=== PATIENT | female | born 1985 | race African-American/Black ===

== ENCOUNTER 2019-01-09 20:10 | Emergency (ER) | payer OTHER ==
[~2019-01-09] VITALS: Ht 170.2 cm; Wt 209.1 kg
[2019-01-09] MEDS ORDERED: NAPR-58 PO (20:32)
[2019-01-09] MEDS ORDERED: AMOX1TAB16 PO (20:32)
[2019-01-09] MEDS ORDERED: BACI30OI10 TP (20:32)
[2019-01-09] MEDS ORDERED: BACITRACIN 0.9 GM PACKET OINTMENT TP ONE (21:45)
[2019-01-09 22:38] VITALS: BP 119/85
== END 2019-01-09 22:55 | disposition home or self-care (01) ==
LOC: EMS 20:10
DX: S60.512A Abrasion of left hand, initial encounter (principal); S50.812A Abrasion of left forearm, initial encounter; J45.909 Unspecified asthma, uncomplicated; I10 Essential (primary) hypertension; Z48.02 Encounter for removal of sutures; Z91.018 Allergy to other foods; V49.9XXA Car occupant (driver) (passenger) injured in unspecified traffic accident, initial encounter; Y93.89 Activity, other specified; Y92.89 Other specified places as the place of occurrence of the external cause; Y99.8 Other external cause status

== ENCOUNTER 2019-01-14 12:35 | Emergency (ER) | payer OTHER ==
[~2019-01-14] VITALS: Ht 170.2 cm; Wt 180.9 kg
[~2019-01-14 12:35] MED LIST: AMOX1TAB16 PO; BACI30OI10 TP; NAPR-58 PO
[2019-01-14] MEDS ORDERED: LISI-662 PO (12:44)
[2019-01-14] MEDS ORDERED: MOME13HF2 IH (12:44)
[2019-01-14] MEDS ORDERED: FERR-89 PO (12:44)
[2019-01-14] MEDS ORDERED: TOLT2TAB2 PO (12:44)
[2019-01-14] MEDS ORDERED: HYDR25TA PO (12:44)
[2019-01-14] MEDS ORDERED: MONT10TA21 PO (12:44)
[2019-01-14] MEDS ORDERED: CALC-134 PO (12:44)
[2019-01-14] MEDS ORDERED: ALBU8HFA IH (12:44)
[2019-01-14] MEDS ORDERED: BACI28.3 TP (12:44)
[2019-01-14] MEDS ORDERED: HydrOXYzine PAMOATE 50 MG CAPSULE PO ONE (13:45)
[2019-01-14] MEDS ORDERED: SODIUM CHLORIDE 0.9% 1,000 ML IV ONE (15:15)
[2019-01-14] MEDS ORDERED: ALBUTEROL SULFATE HFA 90 MCG/PUFF 8 GM INHALER IH ONE (15:30)
[2019-01-14 16:29] LABS: BASOPHILS % (AUTO) 0.8 % (0.0-2.0); EOSINOPHILS % (AUTO) 4.2 % (1.0-6.0); HEMATOCRIT 27.3 % (36-46); HEMOGLOBIN 8.4 g/dL (12.0-16.0); LYMPHOCYTES # (AUTO) 3.4 K/uL (1.0-4.8); LYMPHOCYTES % (AUTO) 30.1 % (22.0-44.0); MEAN CORPUSCULAR HEMOGLOBIN 18.7 pg (26.0-34.0); MEAN CORPUSCULAR HGB CONC 30.9 G/dL (31.0-37.0); MEAN CORPUSCULAR VOLUME 61 fL (80-100); MONOCYTES # (AUTO) 0.7 K/uL (0.1-1.0); MONOCYTES % (AUTO) 5.9 % (2.0-9.0); NEUTROPHILS # (AUTO) 6.6 K/uL (1.8-7.7); PLATELET COUNT (AUTO) 332 K/uL (150-450); RED CELL DISTRIBUTION WIDTH 19.6 % (11.5-14.5)
[2019-01-14 16:42] LABS: ANION GAP 8 mmol/L (8-16); CALCIUM, TOTAL 9.4 mg/dL (8.8-10.5); CARBON DIOXIDE 28 mmol/L (22-29); CHLORIDE 105 mmol/L (98-107); CREATININE 1.01 mg/dL (0.60-1.30); GLOMERULAR FILTR. RATE CALC > 60 mL/min (>60); GLUCOSE,RANDOM 94 mg/dL (70-110); POTASSIUM 3.4 mmol/L (3.5-5.1); SODIUM SERUM 141 mmol/L (136-145); UREA NITROGEN, BLOOD 20 mg/dL (7-18)
[2019-01-14 17:04] LABS: AMPHET/METH SCREEN,URINE POSITIVE (NEGATIVE); BARBITURATE SCREEN, URINE NEGATIVE (NEGATIVE); BENZODIAZEPINES SCREEN,URINE NEGATIVE (NEGATIVE); CANNABINOID SCREEN,URINE NEGATIVE (NEGATIVE); COCAINE SCREEN,URINE NEGATIVE (NEGATIVE); METHADONE SCREEN, URINE NEGATIVE (NEGATIVE); OPIATE SCREEN,URINE NEGATIVE (NEGATIVE)
[2019-01-14 17:06] LABS: PHENCYCLIDINE SCREEN,URINE NEGATIVE (NEGATIVE)
[2019-01-14 18:23] VITALS: BP 145/81
== END 2019-01-14 18:46 | disposition home or self-care (01) ==
LOC: EMS 12:38
DX: S40.812A Abrasion of left upper arm, initial encounter (principal); R00.0 Tachycardia, unspecified; E66.01 Morbid (severe) obesity due to excess calories; T43.625A Adverse effect of amphetamines, initial encounter; F41.9 Anxiety disorder, unspecified; J45.909 Unspecified asthma, uncomplicated; I10 Essential (primary) hypertension; Z68.44 Body mass index [BMI] 60.0-69.9, adult; Z48.00 Encounter for change or removal of nonsurgical wound dressing; Z79.899 Other long term (current) drug therapy; Z91.018 Allergy to other foods; V49.88XA Car occupant (driver) (passenger) injured in other specified transport accidents, initial encounter; Y93.89 Activity, other specified; Y99.8 Other external cause status; Y92.89 Other specified places as the place of occurrence of the external cause
CPT/HCPCS: 36415; 80048; 80307; 85025; 93005; 99284; J7030; J3535

== ENCOUNTER 2019-08-30 13:12 | Emergency (ER) | payer OTHER ==
[~2019-08-30] VITALS: Ht 170.2 cm; Wt 175.0 kg
[~2019-08-30 13:12] MED LIST changes: +ALBU8HFA IH; +BACI28.3 TP; +CALC-134 PO; +FERR-89 PO; +HYDR25TA PO; +LISI-662 PO; +MOME13HF2 IH; +MONT10TA21 PO; +NAPR-1025 PO; -NAPR-58 PO; +TOLT2TAB2 PO
[2019-08-30 16:00] VITALS: BP 131/81
== END 2019-08-30 16:52 | disposition home or self-care (01) ==
LOC: EMS 13:13
DX: L97.921 Non-pressure chronic ulcer of unspecified part of left lower leg limited to breakdown of skin (principal); J45.909 Unspecified asthma, uncomplicated; I10 Essential (primary) hypertension; Z91.018 Allergy to other foods; Z79.899 Other long term (current) drug therapy

== ENCOUNTER → 2019-09-20 | Outpatient (CLI) | payer OTHER ==
[~2019-09-20] MED LIST changes: -AMOX1TAB16 PO; -BACI28.3 TP; -BACI30OI10 TP; +LIDOCAINE 4% 50 ML SOLUTION TP ONE; -NAPR-1025 PO
== END | disposition home or self-care (01) ==
LOC: HBOWC 11:14
PROVIDERS: ATTEND Podiatrist
DX: L97.222 Non-pressure chronic ulcer of left calf with fat layer exposed (principal); I87.2 Venous insufficiency (chronic) (peripheral); E66.01 Morbid (severe) obesity due to excess calories; L84 Corns and callosities; J45.909 Unspecified asthma, uncomplicated; I89.0 Lymphedema, not elsewhere classified; I10 Essential (primary) hypertension; G47.33 Obstructive sleep apnea (adult) (pediatric); Z79.899 Other long term (current) drug therapy; Z91.018 Allergy to other foods; Z68.44 Body mass index [BMI] 60.0-69.9, adult
CPT/HCPCS: 11042; 11045

== ENCOUNTER 2019-09-25 10:35 | Inpatient (IN) | payer OTHER ==
[~2019-09-25] VITALS: Ht 167.6 cm; Wt 165.6 kg
[~2019-09-25 10:35] MED LIST changes: -LIDOCAINE 4% 50 ML SOLUTION TP ONE
[2019-09-25] MEDS ORDERED: 0.9% SODIUM CHLORIDE 10 ML SYRINGE IVP PRN (11:00)
[2019-09-25 11:51] LABS: BASOPHILS % (AUTO) 0.6 % (0.0-2.0); EOSINOPHILS % (AUTO) 0.1 % (1.0-6.0); HEMATOCRIT 27.7 % (36-46); HEMOGLOBIN 8.5 g/dL (12.0-16.0); LYMPHOCYTES # (AUTO) 1.3 K/uL (1.0-4.8); LYMPHOCYTES % (AUTO) 6.6 % (22.0-44.0); MEAN CORPUSCULAR HEMOGLOBIN 19.2 pg (26.0-34.0); MEAN CORPUSCULAR HGB CONC 30.7 G/dL (31.0-37.0); MEAN CORPUSCULAR VOLUME 63 fL (80-100); MONOCYTES % (AUTO) 5.3 % (2.0-9.0); NEUTROPHILS # (AUTO) 16.6 K/uL (1.8-7.7); PLATELET COUNT (AUTO) 407 K/uL (150-450); RED BLOOD CELL COUNT(AUTO) 4.43 MIL/uL (4.00-5.20)
[2019-09-25] MEDS ORDERED: SODIUM CHLORIDE 0.9% 3,000 ML IV ONE (11:51)
[2019-09-25 11:55] LABS: NEUTROPHILS % (AUTO) 87.4 % (40.0-70.0)
[2019-09-25] MEDS ORDERED: ACETAMINOPHEN 500 MG TABLET PO ONE (12:00)
[2019-09-25] MEDS ORDERED: IBUPROFEN 800 MG TABLET PO ONE (12:00)
[2019-09-25 12:10] LABS: ANION GAP 9 mmol/L (8-16); CARBON DIOXIDE 25 mmol/L (22-29); CHLORIDE 104 mmol/L (98-107); CREATININE 1.09 mg/dL (0.60-1.30); GLOMERULAR FILTR. RATE CALC > 60 mL/min (>60); GLUCOSE,RANDOM 106 mg/dL (70-110); POTASSIUM 3.9 mmol/L (3.5-5.1); SODIUM SERUM 138 mmol/L (136-145); UREA NITROGEN, BLOOD 7 mg/dL (7-18)
[2019-09-25 12:14] LABS: INR 1.3 (0.9-1.1); LACTIC ACID 1.2 mmol/L (0.4-2.0)
[2019-09-25 12:15] LABS: B-TYPE NATRIURETIC PEPTIDE 542 pg/mL (0-100)
[2019-09-25 12:41] LABS: ALANINE AMINOTRANSFERASE 29 U/L (12-78); ALBUMIN 2.7 g/dL (3.4-5.0); ALKALINE PHOSPHATASE 101 U/L (46-116); ASPARTATE AMINOTRANSFERASE 23 U/L (15-37); BILIRUBIN,TOTAL 0.7 mg/dL (0.1-1.0); C-REACTIVE PROTEIN QUANT 7.35 mg/dL (0.00-0.30); CREATINE KINASE, TOTAL ONLY 240 U/L (26-192); HCG,QUANTITATIVE < 1 mIU/mL (0-6); TOTAL PROTEIN, SERUM 8.4 g/dL (6.4-8.2)
[2019-09-25 12:51] LABS: PLATELET MORPHOLOGY COMMENT GIANT PLTS PRESENT
[2019-09-25 12:57] LABS: D-DIMER 1.16 mg/L FEU (0.00-0.50)
[2019-09-25] MEDS ORDERED: MORPHINE SULFATE 2 MG/ML SYRINGE IVP PRN (13:00)
[2019-09-25] MEDS ORDERED: ACETAMINOPHEN 325 MG TABLET PO PRN (13:00)
[2019-09-25] MEDS ORDERED: BISACODYL 10 MG RECTAL RECTAL SUPPOSITORY PR PRN (13:00)
[2019-09-25] MEDS ORDERED: OxyCODONE HCL/ACETAMINOPHEN 5-325 MG TABLET PO PRN (13:00)
[2019-09-25] MEDS ORDERED: SODIUM CHLORIDE 0.9% 1,000 ML IV ONE (13:15)
[2019-09-25] MEDS ORDERED: PIPERACILLIN/TAZO 3.375 GM/D5W 50 ML IV ONE (13:15)
[2019-09-25] MEDS ORDERED: VANCOMYCIN HCL 1 GM/D5% WATER 200 ML IV ONE (13:15)
[2019-09-25 15:45] VITALS: BP 125/62
[2019-09-25] MEDS ORDERED: SODIUM CHLORIDE 0.9% 250 ML IV ONE (15:47)
[2019-09-25] MEDS: HEPARIN SODIUM,PORCINE 5,000 UNITS/ML VIAL SQ SCH ×2 (16:00→23:26)
[2019-09-25] MEDS: PIPERACILLIN/TAZO 3.375 GM/D5W 50 ML IV SCH ×2 (16:11→20:30)
[2019-09-25] MEDS ORDERED: VANCOMYCIN HCL 1.5 GM in DEXTROSE 5%-WATER 250 ML IV ONE (18:00)
[2019-09-25 19:55] VITALS: BP 131/74
[2019-09-25] MEDS: DOCUSATE SODIUM 100 MG CAPSULE PO SCH (20:29)
[2019-09-25] MEDS: VANCOMYCIN HCL 1.5 GM in DEXTROSE 5%-WATER 250 ML IV SCH (23:26)
[2019-09-26] VITALS (8 sets, daily range): BP systolic 103–142; BP diastolic 51–79
[2019-09-26] MEDS: PIPERACILLIN/TAZO 3.375 GM/D5W 50 ML IV SCH ×4 (05:04→21:33)
[2019-09-26 06:53] LABS: ANION GAP 9 mmol/L (8-16); CALCIUM, TOTAL 8.2 mg/dL (8.8-10.5); CARBON DIOXIDE 26 mmol/L (22-29); CHLORIDE 105 mmol/L (98-107); CREATININE 1.18 mg/dL (0.60-1.30); GLOMERULAR FILTR. RATE CALC > 60 mL/min (>60); GLUCOSE,RANDOM 89 mg/dL (70-110); POTASSIUM 3.6 mmol/L (3.5-5.1); SODIUM SERUM 140 mmol/L (136-145); UREA NITROGEN, BLOOD 10 mg/dL (7-18)
[2019-09-26] MEDS ORDERED: SODIUM CHLORIDE 0.9% 500 ML IV ONE (07:58)
[2019-09-26] MEDS: HEPARIN SODIUM,PORCINE 5,000 UNITS/ML VIAL SQ SCH ×3 (08:00→23:28)
[2019-09-26] MEDS: DOCUSATE SODIUM 100 MG CAPSULE PO SCH ×2 (08:04→21:00)
[2019-09-26] MEDS: VANCOMYCIN HCL 1.5 GM in DEXTROSE 5%-WATER 250 ML IV SCH ×3 (08:04→23:27)
[2019-09-26] MEDS: FAMOTIDINE 20 MG TABLET PO SCH (08:04)
[2019-09-26] MEDS: MULTIVITAMINS WITH MINERALS, THERAPEUTIC TABLET PO SCH (08:04)
[2019-09-26] MEDS: ASPIRIN 81 MG CHEWABLE TABLET PO SCH (08:05)
[2019-09-27] MEDS ORDERED: 0.9% SODIUM CHLORIDE 5 ML NEB SOLUTION NEB ONE (01:21)
[2019-09-27] MEDS: ALBUTEROL SULFATE 2.5 MG/0.5 ML NEB SOLUTION NEB PRN (04:22)
[2019-09-27] MEDS: PIPERACILLIN/TAZO 3.375 GM/D5W 50 ML IV SCH ×4 (04:48→22:50)
[2019-09-27 05:33] VITALS: BP 150/76
[2019-09-27 07:11] LABS: BASOPHILS % (AUTO) 0.6 % (0.0-2.0); EOSINOPHILS % (AUTO) 1.9 % (1.0-6.0); HEMATOCRIT 26.6 % (36-46); HEMOGLOBIN 8.2 g/dL (12.0-16.0); LYMPHOCYTES # (AUTO) 2.3 K/uL (1.0-4.8); LYMPHOCYTES % (AUTO) 25.9 % (22.0-44.0); MEAN CORPUSCULAR HEMOGLOBIN 19.4 pg (26.0-34.0); MEAN CORPUSCULAR HGB CONC 30.8 G/dL (31.0-37.0); MEAN CORPUSCULAR VOLUME 63 fL (80-100); MONOCYTES # (AUTO) 1.2 K/uL (0.1-1.0); MONOCYTES % (AUTO) 13.7 % (2.0-9.0); NEUTROPHILS # (AUTO) 5.1 K/uL (1.8-7.7); NEUTROPHILS % (AUTO) 57.9 % (40.0-70.0); PLATELET COUNT (AUTO) 340 K/uL (150-450); RED BLOOD CELL COUNT(AUTO) 4.23 MIL/uL (4.00-5.20); RED CELL DISTRIBUTION WIDTH 23.3 % (11.5-14.5)
[2019-09-27 07:28] VITALS: BP 130/83
[2019-09-27 07:36] LABS: ANION GAP 8 mmol/L (8-16); CALCIUM, TOTAL 8.3 mg/dL (8.8-10.5); CARBON DIOXIDE 26 mmol/L (22-29); CHLORIDE 106 mmol/L (98-107); CREATININE 1.12 mg/dL (0.60-1.30); GLOMERULAR FILTR. RATE CALC > 60 mL/min (>60); GLUCOSE,RANDOM 97 mg/dL (70-110); POTASSIUM 3.7 mmol/L (3.5-5.1); SODIUM SERUM 140 mmol/L (136-145); UREA NITROGEN, BLOOD 8 mg/dL (7-18); VANCOMYCIN,RANDOM 27.4 mcg/mL (25.0-50.0)
[2019-09-27] MEDS: DOCUSATE SODIUM 100 MG CAPSULE PO SCH ×2 (07:58→21:22)
[2019-09-27] MEDS: ASPIRIN 81 MG CHEWABLE TABLET PO SCH (07:58)
[2019-09-27] MEDS: MULTIVITAMINS WITH MINERALS, THERAPEUTIC TABLET PO SCH (07:58)
[2019-09-27] MEDS: HEPARIN SODIUM,PORCINE 5,000 UNITS/ML VIAL SQ SCH ×2 (07:58→16:00)
[2019-09-27] MEDS: FAMOTIDINE 20 MG TABLET PO SCH (07:58)
[2019-09-27] MEDS: VANCOMYCIN HCL 1.5 GM in DEXTROSE 5%-WATER 250 ML IV SCH ×2 (08:00→21:22)
[2019-09-27 11:11] VITALS: BP 152/77
[2019-09-27 16:28] VITALS: BP 123/75
[2019-09-28] VITALS (7 sets, daily range): BP systolic 125–145; BP diastolic 75–95
[2019-09-28] MEDS: PIPERACILLIN/TAZO 3.375 GM/D5W 50 ML IV SCH ×4 (04:09→22:56)
[2019-09-28 07:27] LABS: ANION GAP 4 mmol/L (8-16); CALCIUM, TOTAL 8.5 mg/dL (8.8-10.5); CARBON DIOXIDE 30 mmol/L (22-29); CHLORIDE 107 mmol/L (98-107); CREATININE 0.98 mg/dL (0.60-1.30); GLOMERULAR FILTR. RATE CALC > 60 mL/min (>60); GLUCOSE,RANDOM 86 mg/dL (70-110); SODIUM SERUM 141 mmol/L (136-145); UREA NITROGEN, BLOOD 6 mg/dL (7-18)
[2019-09-28] MEDS: HEPARIN SODIUM,PORCINE 5,000 UNITS/ML VIAL SQ SCH ×4 (08:00→23:44)
[2019-09-28] MEDS: FAMOTIDINE 20 MG TABLET PO SCH (08:34)
[2019-09-28] MEDS: VANCOMYCIN HCL 1.5 GM in DEXTROSE 5%-WATER 250 ML IV SCH ×2 (08:34→20:42)
[2019-09-28] MEDS: ASPIRIN 81 MG CHEWABLE TABLET PO SCH (08:34)
[2019-09-28] MEDS: MULTIVITAMINS WITH MINERALS, THERAPEUTIC TABLET PO SCH (08:34)
[2019-09-28] MEDS: DOCUSATE SODIUM 100 MG CAPSULE PO SCH ×2 (08:35→20:43)
[2019-09-28] MEDS ORDERED: SODIUM CHLORIDE 0.9% 500 ML IV ONE (08:40)
[2019-09-28] MEDS: SULFAMETHOX/TRIMETH DS 800-160 MG/TABLET PO SCH ×2 (10:47→20:43)
[2019-09-28] MEDS ORDERED: 0.9% SODIUM CHLORIDE 5 ML NEB SOLUTION NEB ONE (12:03)
[2019-09-28] MEDS: ALBUTEROL SULFATE 2.5 MG/0.5 ML NEB SOLUTION NEB PRN (12:10)
[2019-09-29 04:02] VITALS: BP 116/64
[2019-09-29] MEDS: PIPERACILLIN/TAZO 3.375 GM/D5W 50 ML IV SCH ×2 (04:25→10:50)
[2019-09-29 07:04] LABS: ANION GAP 5 mmol/L (8-16); CALCIUM, TOTAL 8.6 mg/dL (8.8-10.5); CARBON DIOXIDE 29 mmol/L (22-29); CHLORIDE 106 mmol/L (98-107); CREATININE 1.13 mg/dL (0.60-1.30); GLOMERULAR FILTR. RATE CALC > 60 mL/min (>60); GLUCOSE,RANDOM 86 mg/dL (70-110); POTASSIUM 3.9 mmol/L (3.5-5.1); SODIUM SERUM 140 mmol/L (136-145); UREA NITROGEN, BLOOD 5 mg/dL (7-18); VANCOMYCIN,RANDOM 21.3 mcg/mL (25.0-50.0)
[2019-09-29 07:11] VITALS: BP 122/67
[2019-09-29] MEDS: HEPARIN SODIUM,PORCINE 5,000 UNITS/ML VIAL SQ SCH ×2 (08:00→16:00)
[2019-09-29] MEDS: VANCOMYCIN HCL 1.5 GM in DEXTROSE 5%-WATER 250 ML IV SCH (08:32)
[2019-09-29] MEDS: FAMOTIDINE 20 MG TABLET PO SCH (08:33)
[2019-09-29] MEDS: MULTIVITAMINS WITH MINERALS, THERAPEUTIC TABLET PO SCH (08:33)
[2019-09-29] MEDS: ASPIRIN 81 MG CHEWABLE TABLET PO SCH (08:33)
[2019-09-29] MEDS: SULFAMETHOX/TRIMETH DS 800-160 MG/TABLET PO SCH ×2 (08:33→20:20)
[2019-09-29] MEDS: DOCUSATE SODIUM 100 MG CAPSULE PO SCH ×2 (08:37→20:21)
[2019-09-29 11:28] VITALS: BP 136/70
[2019-09-29] MEDS ORDERED: DOCU-275 PO (14:41)
[2019-09-29] MEDS ORDERED: ASPI81 PO (14:41)
[2019-09-29] MEDS ORDERED: FAMO20 PO (14:42)
[2019-09-29] MEDS ORDERED: HEPA500018 SQ (14:43)
[2019-09-29] MEDS ORDERED: MULT-1203 PO (14:44)
[2019-09-29] MEDS ORDERED: SULF1TAB42 PO (14:45)
[2019-09-29] MEDS ORDERED: ACET-3207 PO (14:46)
[2019-09-29] MEDS ORDERED: BISA10SU11 PR (14:47)
[2019-09-29] MEDS ORDERED: PERCT PO (14:49)
[2019-09-29] MEDS ORDERED: AUD NEB (14:51)
[2019-09-29 15:39] VITALS: BP 133/86
[2019-09-29 20:00] VITALS: BP 132/82
== END 2019-09-29 20:35 | DRG 720 ==
LOC: EMS 10:36 → 5S 14:34
PROVIDERS: ADMIT Internal Medicine; ATTEND Internal Medicine
PROC: 05HY33Z Insertion of Infusion Device into Upper Vein, Percutaneous Approach (ICD-10-PCS; principal; 2019-09-28)
PROC: 5A09357 Assistance with Respiratory Ventilation, Less than 24 Consecutive Hours, Continuous Positive Airway Pressure (ICD-10-PCS; 2019-09-28)
PROC: 5A09357 Assistance with Respiratory Ventilation, Less than 24 Consecutive Hours, Continuous Positive Airway Pressure (ICD-10-PCS; 2019-09-29)
DX: A41.9 Sepsis, unspecified organism (principal); G92 Toxic encephalopathy; E66.2 Morbid (severe) obesity with alveolar hypoventilation; I87.8 Other specified disorders of veins; L03.90 Cellulitis, unspecified; D63.8 Anemia in other chronic diseases classified elsewhere; I11.0 Hypertensive heart disease with heart failure; I50.9 Heart failure, unspecified; J45.909 Unspecified asthma, uncomplicated; Z74.01 Bed confinement status; Z91.018 Allergy to other foods; Z79.899 Other long term (current) drug therapy; Z68.43 Body mass index [BMI] 50.0-59.9, adult
CPT/HCPCS: 36569; 51702; 83605; 84145; 85379; 86140; 87040; 93005; 93306; 93970; 94640; 94660; 97116; 97162; 97530; 99291; J1644; J2543; J3370; J7030; J7040; J7050; J7060